=== PATIENT | male | born 1940 | race Caucasian/White ===

== ENCOUNTER 2018-01-10 12:38 | Day surgery (SDC) | payer MEDICARE, BC ==
[~2018-01-10 12:38] MED LIST: MIDAZOLAM 2 MG/2 ML SOL ONE
[2018-01-10] MEDS: CYCLOPENTOLATE 1% SOL ONE ×3 (12:59→13:06)
[2018-01-10] MEDS: PHENYLEPHRINE HCL 10% OPHTHAL SOL ONE ×3 (12:59→13:06)
[2018-01-10] MEDS: TROPICAMIDE 1% OPHTH SOL ONE ×3 (12:59→13:07)
[2018-01-10 13:00] VITALS: PULSE 60; O2SAT 98
[2018-01-10] MEDS ORDERED: GATIFLOXACIN 2.5 ML DROP SOL LEFTEYE ONE ×2 (13:00→13:04)
[2018-01-10] MEDS ORDERED: KETOROLAC/HOME 0.5% SOL LEFTEYE ONE ×3 (13:00→13:08)
[2018-01-10] MEDS: TETRACAINE HCL 0.5 % 1 DROP SOL LEFTEYE ONE ×2 (13:08→13:37)
[2018-01-10] MEDS ORDERED: LIDOCAINE HCL 2% MPF 10 ML SOL ONE (13:29)
[2018-01-10] MEDS ORDERED: BSS W/ 0.5 MG P.F. EPI 1 BOTTLE ONE (13:30)
[2018-01-10] MEDS ORDERED: POVIDONE IODINE 5% SOL ONE (13:30)
[2018-01-10] MEDS ORDERED: ACETAZOLAMIDE 250 MG PO ONE (13:48)
[2018-01-10 14:12] VITALS: BP 145/89; RESP 20; TEMP 97.1
== END 2018-01-10 14:35 | disposition home or self-care (01) | DRG 125 ==
LOC: SURG 12:38
PROVIDERS: ATTEND Ophthalmology
DX: H25.89 Other age-related cataract (principal)
CPT/HCPCS: J2250; A9270-GY

== ENCOUNTER 2018-01-24 10:59 | Day surgery (SDC) | payer MEDICARE, BC ==
[2018-01-24] MEDS: PHENYLEPHRINE HCL 10% OPHTHAL SOL ONE ×3 (11:50→12:02)
[2018-01-24] MEDS: CYCLOPENTOLATE 1% SOL ONE ×3 (11:50→12:02)
[2018-01-24] MEDS ORDERED: KETOROLAC/HOME 0.5% SOL RIGHTEYE ONE ×3 (11:51→12:03)
[2018-01-24] MEDS: TROPICAMIDE 1% OPHTH SOL ONE ×3 (11:51→12:03)
[2018-01-24] MEDS ORDERED: MOXIFLOXACIN-HOME SOL RIGHTEYE ONE ×2 (11:52→11:57)
[2018-01-24] MEDS: TETRACAINE HCL 0.5 % 1 DROP SOL ONE ×2 (12:04→12:56)
[2018-01-24] MEDS ORDERED: MIDAZOLAM 2 MG/2 ML SOL ONE (12:09)
[2018-01-24] MEDS ORDERED: LIDOCAINE HCL 2% MPF 10 ML SOL ONE (12:52)
[2018-01-24] MEDS ORDERED: POVIDONE IODINE 5% SOL ONE (12:52)
[2018-01-24] MEDS: BSS W/ 0.5 MG P.F. EPI 1 BOTTLE ONE ×2 (13:05→13:12)
[2018-01-24] MEDS ORDERED: ACETAZOLAMIDE 250 MG PO ONE (13:09)
[2018-01-24 13:29] VITALS: BP 142/90; PULSE 60; RESP 20; TEMP 97.6; O2SAT 97
== END 2018-01-24 13:45 | disposition home or self-care (01) | DRG 125 ==
LOC: SURG 10:59
PROVIDERS: ATTEND Ophthalmology
DX: H25.89 Other age-related cataract (principal)
CPT/HCPCS: J2250; A9270-GY